=== PATIENT | male | born 1990 | race Hispanic/Latino ===

== ENCOUNTER 2023-02-02 12:07 | Emergency (ER) | payer OTHER ==
[2023-02-02 12:37] VITALS: BP 144/89; PULSE 77; RESP 18
== END 2023-02-02 12:48 | disposition home or self-care (01) ==
LOC: EDH 12:07
DX: S62.502A Fracture of unspecified phalanx of left thumb, initial encounter for closed fracture (principal); S62.631A Displaced fracture of distal phalanx of left index finger, initial encounter for closed fracture; X58.XXXA Exposure to other specified factors, initial encounter; Y93.89 Activity, other specified; Y92.89 Other specified places as the place of occurrence of the external cause; Y99.8 Other external cause status
CPT/HCPCS: 99281